=== PATIENT | female | born 1940 | race Caucasian/White ===

== ENCOUNTER → 2020-01-21 15:33 | Outpatient (BNVA) | payer MEDICARE, OTHER, SELFPAY | PROVIDERS: Family Provider Pediatrics; PCP Pediatrics; Referring Provider Pediatrics; Visit Provider Orthopaedic Surgery | DX: M25.511 Pain in right shoulder (principal) | CPT/HCPCS: 73030 ==

== ENCOUNTER → 2020-02-13 09:14 | Outpatient (BNVA) | payer MEDICARE, OTHER, SELFPAY | PROVIDERS: Family Provider Pediatrics; PCP Pediatrics; Visit Provider Orthopaedic Surgery | DX: Z11.59 Encounter for screening for other viral diseases (principal) | CPT/HCPCS: 87635 ==

== ENCOUNTER 2020-03-18 10:19 | Day surgery (SDC) | payer MEDICARE, OTHER, SELFPAY ==
[2020-03-03 14:14] VITALS: BMI 28.8
[2020-03-18] VITALS (10 sets, daily range): BP systolic 109–176; BP diastolic 58–66; PULSE 68–96; RESP 16–18; TEMP 36.4; O2SAT 95–100
[2020-03-18] MEDS: sodium chloride 0.9% 1,000 ML 30 ML IV (10:55)
--- NOTE | 2020-03-18 12:18 | ANES.PREANE2 ---
Pre-Anesthetic Assessment Pre-Anesthetic Assessment: Height/Weight: Height 1.63 m Weight 76.204 kg Temp Pulse Resp BP Pulse Ox 97.5 F L 74 18 176/66 99 03/18/20 10:41 03/18/20 10:41 03/18/20 10:41 03/18/20 10:41 03/18/20 10:41 Preop Diagnosis: Nonunion right distal clavicle Proposed Procedure: Operation Date: 03/18/20 11:55 Proposed Procedures p Open Distal Clavicle Resection(Right) - Meir Dunham MD Familial anesthetic complications: None Was Beta Zaria taken within 24 hours: N/A Last intake: Intake Last Liquid Date 03/18/20 Last Liquid Time 08:00 Last Solid Date 03/17/20 Last Solid Time 21:00 Social: Social History: No alcohol and No tobacco Exam: Pre-Anes Outpt Exam: alert, oriented x 3, clear to auscultation bilaterally and regular rate & rhythm Airway: Cervical ROM: WNL MP: 3 Dentition: Other (plates) Pulmonary: Comments: Covid positive in jan CV/HEM: CV/HEM: HTN Comments: echo 2014 - trace tvr, mild avr GI: GI: GERD Metabolic: Metabolic: Hyperlipidemia and Thyroid Anesthetic Plan: ASA status: 2 Anesthesia: General Risk of > 500 ml blood loss (7ml/kg in children): No Meds/Allergies Current Medications: Current Medications Generic Name Dose Route Start Last Admin Trade Name Freq PRN Reason Stop Dose Admin Sodium Chloride 1,000 mls @ 30 ml s/hr 03/18/20 08:00 03/18/20 10:55 Sodium Chloride 0.9% IV 03/19/20 07:59 30 mls/hr .Q24H DOUG Administration PFSH Anesthesia PFSH: Social History (Updated 01/21/20 @ 15:28 by Jonn Hernandez LPN) Smoking and tobacco status: never smoked Alcohol intake: never Data Anesthesia Cardiac Studies: No Data to Display
--- NOTE | 2020-03-18 13:09 | W.PM.OPSUD ---
Surgery/Procedure H&P Update DATE OF PROCEDURE: March 18, 2020 PREOP DIAGNOSIS: Nonunion right distal clavicle PLANNED PROCEDURE: Operation Date: 03/18/20 11:55 Proposed Procedures p Open Distal Clavicle Resection(Right) - Meir Dunham MD
--- NOTE | 2020-03-18 13:10 | W.PM.OPSFHP ---
Same Day Surgery H&P Indication for Procedure/HPI DATE OF PROCEDURE: March 18, 2020 CHIEF COMPLAINT/INDICATIONFOR SURGICAL PROCEDURE: Right shoulder pain due to nonunion right distal clavicle fracture. Here for excision distal clavicle PREOP DIAGNOSIS: Nonunion right distal clavicle PLANNED PROCEDRUE: Operation Date: 03/18/20 11:55 Proposed Procedures p Open Distal Clavicle Resection(Right) - Meir Dunham MD Medications/Allergies* Home Medications Medication Instructions Recorded Confirmed Type amlodipine 10 mg tablet 10 mg PO DAILY 01/21/20 03/18/20 History calcium carbonate 600 mg calcium 600 mg PO BID 01/21/20 03/18/20 History (1,500 mg) tablet celecoxib 200 mg capsule 200 mg PO DAILY 01/21/20 03/18/20 History famotidine 40 mg tablet 40 mg PO DAILY 01/21/20 03/18/20 History levothyroxine 75 mcg capsule 75 mcg PO DAILY 01/21/20 03/18/20 History lisinopril 20 mg tablet 20 mg PO BID 01/21/20 03/18/20 History multivitamin 1 tab PO DAILY 01/21/20 03/18/20 History omeprazole magnesium 20 mg 20 mg PO DAILY 01/21/20 03/18/20 History tablet,delayed release potassium chloride 20 mEq 20 meq PO DAILY 01/21/20 03/18/20 History tablet,extended release(part/cryst) pravastatin 80 mg tablet 80 mg PO DAILY 01/21/20 03/18/20 History sertraline 50 mg tablet 50 mg PO DAILY 01/21/20 03/18/20 History Allergies/Adverse Reactions Allergy/AdvReac Type Severity Reaction Status Date / Time Penicillins Allergy hives Verified 03/03/20 14:04 Sulfa (Sulfonamide Allergy hives Verified 03/03/20 14:04 Antibiotics) Current Medications: Generic Name Dose Route Start Last Admin Trade Name Freq PRN Reason Stop Dose Admin Sodium Chloride 1,000 mls @ 30 mls/hr 03/18/20 08:00 03/18/20 10:55 Sodium Chloride 0.9% IV 03/19/20 07:59 30 mls/hr .Q24H DOUG Administration Pertinent History/Comorbid Conditions* Social History Smoking and tobacco status: never smoked Alcohol intake: never Pertinent Exam Findings alert, oriented x 3, clear to auscultation bilaterally, regular rate & rhythm and operative site marked Recommendations Surgery/Procedure today Coding Level of Care Code Acute [employer]er for Mario Ortiz
--- NOTE | 2020-03-18 16:29 | P.OP_ITS ---
Operative Report Date of procedure: March 18, 2020 Pre-op Diagnosis: Nonunion right distal clavicle Post-op diagnosis: same Post-op Findings: Same Procedure Done: Surgeon right distal clavicle nonunion fragment Pathology: none sent Surgeon: Meir Dunham Anesthesia: General Estimated blood loss (mL): 25 Findings: The patient had a nonunion of the right distal clavicle Condition: stable Disposition: PACU Procedure: The patient was taken to the operating room and given a general anesthesia. She was positioned in the soft beachchair position with a bump beneath the right shoulder. The right dorsal shoulder was prepped and draped squared off in the usual sterile fashion. A timeout was performed. Initially a transverse incision was made approximately 3 cm long with a scalpel blade and dissection was carried down to the dorsal acromion and acromioclavicular joint capsule. A longitudinal split was then made in the periosteum over the distal clavicle extending to the acromion. The nonununited fragment was identified and using a scalpel blade and electrocautery removed. No instability was noted of the remaining distal clavicle.. The periosteum was reapproximated with 0 Vicryl. The subcutaneous tissues were closed with 0 Vicryl. The skin was closed with skin jude. 0 dressings were applied. The patient was extubated taken barb very room in stable condition.
[2020-03-18] MEDS: HYDROcodone-acetaminophen 5-325 mg Tablet 1 TAB PO ×2 (17:00→18:11)
--- NOTE | 2020-03-18 17:25 | ANE.PACU2 ---
Inpatient post-anesthesia follow up: Airway intact: Yes Vital signs: Temperature 97.6 F Pulse Rate 72 Respiratory Rate 18 Blood Pressure 141/66 Pulse Oximetry 97 Oxygen Delivery Me thod Room Air Oxygen Flow Rate 8 Fraction of Inspir ed Oxygen Hydration adequate: Yes Nausea and vomiting: No Pain level: 2 Mental status: Baseline
== END 2020-03-18 18:18 | disposition home or self-care (01) ==
PROVIDERS: PCP Pediatrics; Visit Provider Orthopaedic Surgery
PROC: (CPT 23120; principal; 2020-03-18 11:55)
DX: S42.031A Displaced fracture of lateral end of right clavicle, initial encounter for closed fracture (principal); X58.XXXA Exposure to other specified factors, initial encounter; I10 Essential (primary) hypertension; E78.5 Hyperlipidemia, unspecified; K21.9 Gastro-esophageal reflux disease without esophagitis
CPT/HCPCS: 23120; 12345; J0131; J0330; J0690; J2405; J2704; J3010; J3490; J7030